=== PATIENT | male | born 1995 | race Two or more races ===

== ENCOUNTER 2017-03-20 22:57 | Emergency (ER) | payer BC ==
[~2017-03-20] VITALS: Ht 172.7 cm; Wt 141.5 kg
[~2017-03-20 22:57] MED LIST: ONDANSETRON ODT4 MG PO
[2017-03-20 23:15] VITALS: BP 127/88
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
[2017-03-21 01:15] VITALS: BP 125/62
[2017-03-21] MEDS ORDERED: ABILIFY15 MG ORAL (01:47)
[2017-03-21 02:10] VITALS: BP 125/62
--- NOTE | 2017-03-21 09:36 | Diagnostic Imaging Report ---
Indication: Trauma to right orbit, right orbital swelling, pain Technique: Noncontrast spiral acquisitions obtained through the orbits are reconstructions were generated. Total dose length product 416.74 mGycm. CTDIvol(s) 28.19 mGy. Radiation dose was minimized using automated exposure control Comparison: none Findings: There is right periorbital soft tissue swelling demonstrated. No soft tissue gas or foreign body demonstrated. No orbital or other fracture demonstrated. No worrisome sinus opacification. There is circumferential mucosal disease within the right maxillary sinus and a small air-fluid level as well as some circumferential mucosal disease in the left maxillary sinus. There is also some ethmoid and sphenoid sinus mucosal disease demonstrated. The optic globes are intact. The retroseptal orbits are unremarkable. The included intracranial structures are grossly unremarkable. Impression: Right periorbital soft tissue swelling. No acute bony trauma Sinus disease This agrees with the preliminary interpretation provided overnight by [facility]. The CT scanner at [facility] is accredited by the [employer] and the scans are performed using protocols designed to limit radiation exposure to as low as reasonably achievable to attain images of sufficient resolution adequate for diagnostic evaluation.
== END 2017-03-21 02:10 | disposition home or self-care (01) ==
LOC: EMR 23:05
DX: S01.111A Laceration without foreign body of right eyelid and periocular area, initial encounter (principal); Y04.0XXA Assault by unarmed brawl or fight, initial encounter; Y92.9 Unspecified place or not applicable; F20.9 Schizophrenia, unspecified; J32.9 Chronic sinusitis, unspecified
CPT/HCPCS: 70480; 99284